=== PATIENT | male | born 1945 | race Caucasian/White ===

== ENCOUNTER 2019-09-26 08:58 | Outpatient (CLI) | payer MEDICARE ==
[~2019-09-26 08:58] MED LIST: ALBU2.5V NPPB; AMLO2.5T2 PO; AMLO5TAB4 PO; ASPI81TA45 PO; CLOP75TA52 PO; ERGO500017 PO; FLUT1DIS3 INH; LEVO750T26 PO; LISI5TAB7 PO; METO25TA35 PO; METR500T PO; OXYC-307 PO; PRAV40TA2 PO; TRAM-47 PO; [UNRECOGNIZED DRUG - REMARK]
[2019-09-26] MEDS ORDERED: OMNIPAQUE 350 MG/ML, 100ML BOTTLE ONE (15:00)
== END 2019-09-26 23:59 | disposition home or self-care (01) ==
LOC: CFH 08:58
PROVIDERS: ATTEND Nurse Practitioner
DX: I71.4 Abdominal aortic aneurysm, without rupture (principal); R91.1 Solitary pulmonary nodule; N40.0 Benign prostatic hyperplasia without lower urinary tract symptoms; J98.11 Atelectasis; I70.0 Atherosclerosis of aorta; K76.0 Fatty (change of) liver, not elsewhere classified; K76.89 Other specified diseases of liver
CPT/HCPCS: 74174; 82565; Q9967

== ENCOUNTER → 2019-11-19 | Outpatient (CLI) | payer MEDICARE | END | disposition home or self-care (01) | LOC: PETCFH 08:32 | PROVIDERS: ATTEND Registered Nurse | DX: R91.1 Solitary pulmonary nodule (principal); I71.4 Abdominal aortic aneurysm, without rupture; Z90.49 Acquired absence of other specified parts of digestive tract | CPT/HCPCS: 78815; A9552 ==

== ENCOUNTER → 2020-12-08 | Outpatient (CLI) | payer MEDICARE ==
[~2020-12-08] MED LIST changes: -OXYC-307 PO; +OXYC-380 PO
== END | disposition home or self-care (01) ==
LOC: CVU 07:19
PROVIDERS: ATTEND Surgery Vascular Surgery
DX: I71.4 Abdominal aortic aneurysm, without rupture (principal)
CPT/HCPCS: 93978